=== PATIENT | male | born 1965 | race Caucasian/White ===

== ENCOUNTER 2017-11-16 08:45 | Inpatient (IN) | payer OTHER ==
--- NOTE | 2017-11-11 08:30 | GHP ---
[f rep st] PREOP HISTORY AND PHYSICAL He will be a morning admission for surgery at [facility] on ____ . PROBLEM #1: Right hip arthritis. HISTORY OF PRESENT ILLNESS: The patient is a 52-year-old man admitted for a right hip [place] hip resurfacing arthroplasty. He has been aware of some soreness in the right hip for the past 4 or 5 years. Since April of 2017, the right hip has been particularly painful. He has been limping. He has groin pain. He has occasional buttocks pain. It is painful to walk and hike. He discontinued running in May. He occasionally uses ibuprofen. He has mild trouble putting on his shoes and socks on the right foot. He has tried physical therapy, which did not help. He has not had any cortisone injections. PAST MEDICAL HISTORY: Overall, he is in excellent general health. He takes medicine for depression. No history of heart disease, stents, DVT, hepatitis, or bleeding problems. He states that he has "a little" sleep apnea. CURRENT MEDICATIONS: Paxil 5 mg per day. ALLERGIES: Drug allergies: Penicillin. He had an unknown reaction as a child. Metal allergy: None. Latex allergy: None. SOCIAL HISTORY: The patient is . 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 He does not smoke cigarettes and occasionally drinks alcohol. FAMILY HISTORY: Positive for heart disease, arthritis, and diabetes mellitus. PHYSICAL EXAMINATION: VITAL SIGNS: Height 5 feet, 11 inches. Weight 150 pounds. BMI 20.9. EYES: Conjunctivae and sclerae are clear. Pupils are round and reactive. MOUTH: Good oral hygiene. No loose teeth. CHEST: Clear. HEART: Regular rhythm. No murmurs. EXTREMITIES: Pertinent findings are limited to his right hip. He has full hip extension and 120 degrees of flexion. External rotation 40 degrees. Internal rotation 0 degrees. Abduction 40 degrees. He has well-developed thigh and calf musculature. IMAGING: His films show advanced degenerative arthritis of the right hip. He is [id number]. He does not have much osteophyte formation. IMPRESSION ON ADMISSION: 1. Right hip advanced degenerative arthritis. He is prepared for a right hip [place] hip resurfacing arthroplasty. 2. Treatment for depression. PLAN: He will undergo a right hip BHR. The surgery has been described to him, including the risks, complications, expectations, and recovery time. I have discussed with him the risk of femoral neck fracture, dislocation, infection, and sciatic nerve injury. I have also talked to him in detail about the potential risk of elevated metal ions in the blood and in the soft tissues around the hip joint. All of his questions have been answered, and he consents to surgery. /[id number]/MODL MTDD
[~2017-11-16 08:45] MED LIST: POVIDONE-IODINE 20 ML in SODIUM CL IRRIG SOLUTION 500 ML IRR ONE; ROPIVACAINE 0.2% 80 MG, EPINEPHrine 0.2 MG, KETOROLAC TROMETHAMINE 30 MG in SYRINGE 0 ML IU ONE; TRANEXAMIC ACID 1,400 MG in NS 100 ML IV ONE; VANCOMYCIN HCL/NORMAL SALINE 250 ML IV ONE; VANCOMYCIN PHARMACY TO DOSE MISC ONE
[2017-11-16] MEDS ORDERED: DEXAMETHASONE 4 MG/ML VIAL IVP ONE (09:52)
[2017-11-16] MEDS ORDERED: ACETAMINOPHEN 325 MG TAB PO ONE (09:52)
[2017-11-16] MEDS ORDERED: FAMOTIDINE 20 MG TAB PO ONE (09:52)
[2017-11-16] MEDS ORDERED: GABAPENTIN 300 MG CAP PO ONE (09:52)
[2017-11-16] MEDS ORDERED: LR 1,000 ML IV ONE (10:16)
[2017-11-16] MEDS ORDERED: ceFAZolin 1 GM/5 ML SYR ONE (10:18)
[2017-11-16] MEDS: LIDOCAINE 1% 2 ML INJ ID PRN ×2 (10:33→11:15)
[2017-11-16] MEDS ORDERED: MIDAZOLAM 2 MG/2 ML VIAL IVP ONE (10:57)
--- NOTE | 2017-11-16 10:57 | PDANEPAE ---
ANE History of Present Illness R [place] hip arthroplasty ANE Past Medical History - Cardiovascular History Hx Hypertension: No Hx Arrhythmias: No Hx Chest Pain: No Hx Coronary Artery / Peripheral Vascular Disease: No Hx CHF / Valvular Disease: No Hx Palpitations: No - Pulmonary History Hx COPD: No Hx Asthma/Reactive Airway Disease: No Hx Recent Upper Respiratory Infection: No Hx Oxygen in Use at Home: No Hx Sleep Apnea: No Sleep Apnea Screening Result - Last Documented: Positive Pulmonary History Comment: R/O sleep apnea - Neurologic History Hx Cerebrovascular Accident: No Hx Seizures: No Hx Dementia: No - Endocrine History Hx Diabetes: No - Renal History Hx Renal Disorders: No - Liver History Hx Hepatic Disorders: No - Neurological & Psychiatric Hx Hx Neurological and Psychiatric Disorders: Yes Neurological / Psychiatric History Comment: anxiety - Cancer History Hx Cancer: No - Congenital Disorder History Hx Congenital Disorders: No - GI History Hx Gastrointestinal Disorders: No - Chronic Pain History Chronic Pain: No - Surgical History Prior Surgeries: B rotator cuff repair ANE Review of Systems Review of systems is: negative Review of Systems: - Exercise capacity Exercise capacity: >=4 METS METS (RN): 6 METS ANE Patient History - Allergies Allergies/Adverse Reactions: Penicillins Allergy (Verified 08/22/14 08:42) - Home Medications Home medications: home medication list seen and reviewed Home Medications: PARoxetine HCL [Paxil 10mg (*)] 5 mg PO DAILY 08/22/14 [Last Taken 11/15/17 22: 00] - NPO status NPO Status: no food or drink >8 hours NPO Since - Liquids (Date): 11/15/17 NPO Since - Liquids (Time): 22:00 NPO Since - Solids (Date): 11/15/17 NPO Since - Solids (Time): 22:00 - Anes Hx Anes Hx: no prior problems - Smoking Hx Smoking Status: Never smoked - Family Anes Hx Family Anes Hx: none Family Hx Anesthesia Complications: none ANE Labs/Vital Signs - Vital Signs Blood Pressure: 113/82 Heart Rate: 50 Respiratory Rate: 16 O2 Sat (%): 97 Height: 177.8 cm Weight: 70.307 kg ANE Physical Exam - Airway Neck exam: FROM Mallampati Score: Class 1 - Pulmonary Pulmonary: no respiratory distress - Cardiovascular Cardiovascular: regular rate and rhythym - ASA Status ASA Status: I (this eval was completed before pt care, but documentation completed later) ANE Anesthesia Plan Anesthesia Plan: MAC, spinal
--- NOTE | 2017-11-16 11:40 | PDHPUP ---
History & Physical Update H&P update statement: This history and physical update is based on an assessment of the patient which was completed after admission or registration (within 24 hours), but prior to the surgery/procedure. H&P update: H&P reviewed & patient examined, no change in patient's condition since H&P completed
[2017-11-16] MEDS ORDERED: PROPOFOL/EMULSION 500 MG/50 ML BOTTLE IV ONE (12:23)
[2017-11-16] MEDS ORDERED: LIDOCAINE 2% 100 MG/5 ML SYR ONE (12:23)
[2017-11-16] MEDS ORDERED: epHEDrine SULFATE 10 MG/ML SYR ONE (13:44)
--- NOTE | 2017-11-16 14:02 | POSTOPPROG ---
Post Op Note Date of Operation: 11/16/17 Surgeon: Nir Ch Ecommerce Marketing Manager: Marcel Hopson/Clive Jon Anesthesiologist: Dr. Sergey Aguayo Anesthesia: IV Sedation, Spinal Post-op Diagnosis: Right hip arthritis Procedure: Right [place] hip resurfacing arthroplasty Inf/Abcess present in the surg proc area at time of surgery?: No EBL: 100-500
[2017-11-16] MEDS ORDERED: HYDROmorphONE/DILAUDID 1 MG/ML INJ IVP PRN (14:11)
[2017-11-16] MEDS ORDERED: HYDROCODONE/APAP 5/325 TAB PO PRN (14:11)
[2017-11-16] MEDS ORDERED: PROMETHAZINE HCL 25 MG/ML INJ IVP PRN ×2 (14:11→14:20)
[2017-11-16] MEDS ORDERED: DEXAMETHASONE 4 MG/ML VIAL IVP PRN (14:11)
[2017-11-16] MEDS ORDERED: OXYCODONE/APAP 5/325 TAB PO PRN (14:11)
[2017-11-16] MEDS ORDERED: ACETAMINOPHEN 500 MG TAB PO PRN (14:11)
[2017-11-16] MEDS ORDERED: NALOXONE HCL 0.4 MG/ML INJ IVP PRN (14:11)
[2017-11-16] MEDS ORDERED: fentaNYL 100 MCG/2 ML INJ IVP PRN (14:11)
[2017-11-16] MEDS ORDERED: ONDANSETRON 4 MG/2 ML VIAL IVP PRN ×2 (14:11→14:20)
--- NOTE | 2017-11-16 14:14 | POSTANESTH ---
Post Anesthetic Evaluation Cardiovascular Status: Normal, Stable, Similar to Pre-Op Cond Respiratory Status: Normal, Stable, Similar to Pre-op Cond. Level of Consciousness/Mental Status: Can Participate in Eval, Mildly Sleepy, Arousable Pain Control: Adequate, Prn Tx Ordered Nausea/Vomiting Control: Adequate, Prn Tx Ordered Complications Possibly Related to Anesthesia: None Noted
[2017-11-16] MEDS ORDERED: oxyCODONE IR 5 MG TAB PO PRN (14:20)
[2017-11-16] MEDS ORDERED: MAGNESIUM HYDROXIDE 30 ML UDCUP PO PRN (14:20)
[2017-11-16] MEDS ORDERED: PROMETHAZINE HCL 25 MG SUPPR PR PRN (14:20)
[2017-11-16] MEDS ORDERED: POLYETHYLENE GLYCOL 3350 17 GM PKT PO PRN (14:20)
[2017-11-16] MEDS ORDERED: DIPHENOXYLATE/ATROPINE LOMOTIL 1 TAB PO PRN (14:20)
[2017-11-16] MEDS ORDERED: BISACODYL 10 MG SUPP PR PRN (14:20)
[2017-11-16] MEDS ORDERED: LACTULOSE 20 GM/30 ML UDCUP PO PRN (14:20)
[2017-11-16] MEDS ORDERED: NS 500 ML IV PRN (14:20)
[2017-11-16] MEDS ORDERED: diphenhydrAMINE 25 MG CAP PO PRN (14:20)
[2017-11-16] MEDS ORDERED: CYCLOBENZAPRINE 10 MG TAB PO PRN (14:20)
[2017-11-16] MEDS ORDERED: KETOROLAC 30 MG/1 ML SDV IVP PRN (14:20)
[2017-11-16] MEDS ORDERED: ONDANSETRON DISINTEGRATING 4 MG TAB PO PRN (14:20)
[2017-11-16] MEDS ORDERED: TEMAZEPAM 15 MG CAP PO PRN (14:20)
[2017-11-16] MEDS ORDERED: LR 1,000 ML IV SCH (14:30)
[2017-11-16] MEDS: ACETAMINOPHEN 325 MG TAB PO SCH (17:54)
[2017-11-16] MEDS: SENNOSIDES/DOCUSATE SODIUM TAB PO SCH (20:41)
[2017-11-16] MEDS: FAMOTIDINE 20 MG TAB PO SCH (20:41)
[2017-11-16] MEDS: TRANEXAMIC ACID 650 MG TAB PO SCH (20:42)
[2017-11-16] MEDS: ASPIRIN EC 325 MG TAB PO SCH (20:42)
--- NOTE | 2017-11-16 22:18 | GOP ---
[f rep st] OPERATIVE REPORT DATE OF OPERATION: 11/16/2017 SURGEON: Nir Ch MD MASTER MACHINIST: Marcel Hopson and Clive Jon. ANESTHESIA: Combination of Marcaine, spinal, and IV sedation. PREOPERATIVE DIAGNOSIS: Right hip severe degenerative arthritis. POSTOPERATIVE DIAGNOSIS: Right hip severe degenerative arthritis. PROCEDURE PERFORMED: 11/16/2017, a right hip [place] hip resurfacing arthroplasty. FINDINGS: ESTIMATED BLOOD LOSS: About 300 mL. DESCRIPTION OF PROCEDURE: The patient was given 1 g of IV Ancef preoperatively within 60 minutes of surgery. He also received IV tranexamic acid at a dose of 20 mg/kg. He was placed on the operating room table and given spinal anesthesia with Marcaine by Dr. Aguayo. He was then placed supine and given IV sedation. A Ackerman catheter was not used. He wore a compressive stocking and SCD on the non operative leg. He was rolled to the left lateral decubitus position. An axillary roll was used, and all pressure points were padded. The position was secured with the pegboard table attachment. I wa s careful to lock his pelvis in a vertical position. His perineum was isolated with plastic adhesive drapes. The right hip and right lower extremity were prepped with ChloraPrep. They were draped tara e using sterile sheets, stockinette, and Ioban plastic drape. The World Health Organization time-out was performed to verify the correct patient identity and the c orrect surgical side and site. The Berkley time-out was also performed. I made a 6-7 inch straight oblique posterolateral hip skin incision. The subcutaneous tissues were s harply divided, and hemostasis was obtained using electrocautery. The fascia jeanmarie was identified and split along the axis of its fibers. I curved posteriorly and proximally split the fascia of gluteus dante and bluntly split the muscle fibers in line with their orientation. His sciatic nerve was i dentified and protected throughout the procedure. The Charnley self-retaining retractor was inserted . The external rotators and the posterior hip capsule were divided as separate layers at the base of the femoral neck, tagged, and reflected posteriorly. The gluteus dante tendon was divided and tag ged in order to improve exposure and release tension on the sciatic nerve. The hip was dislocated po steriorly. I used a sizing gauge to check the diameter of the neck and concluded that 48 mm was the proper head size. I performed a complete circumferential capsulotomy. I was able to retract the fem oral head anteriorly and superiorly, and hold it out of place with appropriate retractors. The remna nt of his damaged labrum was excised. The acetabulum was reamed sequentially up to 54 mm. I selecte d the Sharon monoblock porous-coated acetabular component with an outside diameter of 54 mm. Neema s was firmly impacted and was very tight. I was careful to determine proper inclination and antevers ion. I used the transverse acetabular ligament and other acetabular bony landmarks to help me determ ine proper cup orientation. A moderate-sized posterior-inferior osteophyte was removed with an osteo tome and rongeur. I was careful to leave a good lip of bone and capsule extending beyond the anterio r-inferior lip of the metal cup. I then returned to preparation of the femoral head. Using appropriate jigs and guides, I inserted a guide pin into the femoral head and neck. I was careful to position it in such a way that there woul d be no notching of the neck. The large sterile metal goniometer was used to check the neck shaft an gle. I reamed over the guide pin and inserted the reaming guide. I then used the cylindrical reamer down to the head and neck junction. This was followed by the flat reamer and the chamfer reamer. T he head was sized for 48 mm. There was no impingement or damage to the neck. He had some moderate s ized dense anterior neck osteophytes, which I removed with a rongeur. I drilled a small hole in the lesser trochanter and inserted a suction cannula to create negative pressure in the medullary canal. Small holes were drilled on the flattened chamfer surfaces of the prepared head for cement anchors. The head was thoroughly cleaned with the pulsating lavage and carefully dried. I used a CarboJet de vice to blow dry the cancellous surfaces. A single batch of Simplex cement with tobramycin was mixed . At about 50 seconds, I poured the liquid cement into the head component, inserted it on the prepar ed femoral head and impacted it into place. Excess cement was removed before it hardened. The acetabulum was irrigated, cleaned, and the hip was reduced 1 final time. Stability and range of motion were checked. I placed my finger along the anterior aspect of the acetabular component and fl exed the hip to 110 degrees. There was no anterior impingement. The suction cannula and the lesser trochanter were removed. The wound was thoroughly irrigated with a dilute Betadine solution. 40 mL of the joint anesthetic cocktail were injected into the capsule, and the subcutaneous tissues around the skin edges. His sciatic nerve was reinspected and looked unharmed. The external rotators and the posterior hip c apsule were repaired in separate layers with two #2 FiberWire sutures through drill holes in the grea ter trochanter. This provided a strong posterior capsular and external rotator repair. The gluteus dante tendon was repaired with two #2 [id number] FiberWire sutures. The fascia jeanmarie was close d first with 2 interrupted [id number] #2 FiberWire sutures followed by a running #2 barbed Ethic on Stratafix PDO suture. Subcutaneous tissues were closed with a running 0 barbed Ethicon Stratafix Monoderm suture. The skin was closed with a running 3-0 barbed Ethicon Stratafix Monoderm subcuticul ar suture. The skin edges were reapproximated and sealed with Dermabond glue. The wound was covered with a large sterile Mepilex waterproof dressing. IMPLANTS: I used the [place] hip resurfacing system. The acetabular component was [address] and press-fit. The femoral head was 48 mm and cemented. He was awakened from anesthesia and rolled to the supine position on his [facility]. He was sofi en to PACU in satisfactory condition. There were no recognized intraoperative complications. A long -leg JEFF stocking and SCD were applied to the operative leg. An abduction pillow was placed between his knees. COUNTS: The sponge and needle count were correct on 2 occasions. Marcel Hopson and Clive Jon acted as surgical assistants. Their assistance was a medical necess ity for safe completion of the procedure. /[id number]/MODL
[2017-11-16] MEDS ORDERED: VANCOMYCIN HCL/NORMAL SALINE 250 ML IV ONE (23:00)
[2017-11-16] MEDS: traMADol 50 MG TAB PO PRN (23:10)
[2017-11-17] MEDS: ACETAMINOPHEN 325 MG TAB PO SCH ×3 (00:29→11:36)
[2017-11-17] MEDS: TRANEXAMIC ACID 650 MG TAB PO SCH ×2 (04:02→11:37)
[2017-11-17 04:28] VITALS: RESP 16; TEMP 97.9; O2SAT 96
[2017-11-17] MEDS: traMADol 50 MG TAB PO PRN (04:28)
[2017-11-17 05:14] LABS: HEMATOCRIT 37.3 % (40.0-51.0)
--- NOTE | 2017-11-17 07:31 | SOAPPROG ---
SOAP Progress Note Assessment/Plan: Assessment: Afebrile. Moderate pain. She has been up and walking in the [place]. Her H&H is satisfactory. Postop films look fine. Plan: Continue physical therapy for [place] walking and stairs. Discharged later today. We will cover her with Lovenox until her INR is therapeutic. 11/17/17 07:29 Objective: Vital Signs Temp Pulse Resp BP Pulse Ox 36.6 C 62 16 107/69 96 11/17/17 04:00 11/17/17 04:00 11/17/17 04:00 11/17/17 04:00 11/17/17 04:00 Laboratory Results 11/17/17 04:45 11/16/17 11/17/17 11/18/17 05:59 05:59 05:59 Intake Total 3030 Output Total 300 Balance 2730 ICD10 Worksheet Patient Problems: Problems Problem Status Onset Osteoarthritis of right hip Acute Abdominal pain Acute
--- NOTE | 2017-11-17 07:32 | SOAPPROG ---
SOAP Progress Note Assessment/Plan: Assessment: Afebrile. Moderate pain. She has been up and walking in the [place]. Her H&H is satisfactory. Postop films look fine. Plan: Continue physical therapy for [place] walking and stairs. Discharged later today. We will cover her with Lovenox until her INR is therapeutic. 11/17/17 07:29 11/17/17 07:31 The above progress note was on the wrong patient. Afebrile. Minimal pain. He has been up and walking in the [place]. His dressing is dry. H&H is satisfactory. Sciatic nerve is intact. Postop films look excellent. Plan: Physical therapy today. Discharged later today. Objective: Vital Signs Temp Pulse Resp BP Pulse Ox 36.6 C 62 16 107/69 96 11/17/17 04:00 11/17/17 04:00 11/17/17 04:00 11/17/17 04:00 11/17/17 04:00 Laboratory Results 11/17/17 04:45 11/16/17 11/17/17 11/18/17 05:59 05:59 05:59 Intake Total 3030 Output Total 300 Balance 2730 ICD10 Worksheet Patient Problems: Problems Problem Status Onset Osteoarthritis of right hip Acute Abdominal pain Acute
--- NOTE | 2017-11-17 08:04 | GDS ---
[f rep st] DISCHARGE SUMMARY ADMISSION DIAGNOSIS: Right hip severe degenerative arthritis. DISCHARGE DIAGNOSIS: Right hip severe degenerative arthritis. OPERATION PERFORMED: 11/16/2017, right hip [place] hip resurfacing arthroplasty. POSTOPERATIVE COMPLICATIONS: None. CONDITION ON DISCHARGE: Improved. DESCRIPTION OF HOSPITAL COURSE: The patient was admitted to the hospital on the morning of surgery. His admission CBC was normal. The same day, under a combination of Marcaine, spinal, and IV sedatio n, he underwent a right hip [place] hip resurfacing arthroplasty. Postoperatively he was treated with multimodal DVT prophylaxis, including aspirin. He was seen by Physical Therapy and made rapid p rogress with ambulation. On the first postoperative day, his hemoglobin and hematocrit were 13.0 and 37.3. DISPOSITION: Patient is discharged to his home. He may progress to full weightbearing on the right as tolerated. Use an abduction pillow for 3 weeks. Continue aspirin 325 mg p.o. daily for 21 days. He has prescriptions for oxycodone and tramadol for pain control. I will see him back in the office on 12/05/2017. If there any problems, he is to call me at the office. /[id number]/MODL
[2017-11-17 08:23] VITALS: BP 117/76; PULSE 56
[2017-11-17] MEDS ORDERED: PARoxetine HCL 10 MG TAB PO SCH (09:00)
[2017-11-17] MEDS ORDERED: FERROUS SULFATE 140 MG TAB.ER PO SCH (09:00)
[2017-11-17] MEDS: SENNOSIDES/DOCUSATE SODIUM TAB PO SCH (09:09)
[2017-11-17] MEDS: ASPIRIN EC 325 MG TAB PO SCH (09:09)
[2017-11-17] MEDS: FAMOTIDINE 20 MG TAB PO SCH (09:09)
--- NOTE | 2017-11-17 12:02 | ASMTCMCOM ---
CM Note CM Note Notes: Pt medically stable for d/c, no CM d/c needs identified. Date Signed: 11/17/2017 12:01 PM Electronically Signed By:MEKA Knight
--- NOTE | 2017-11-17 12:05 | ASDISCHSUM ---
Discharge Information Plan Status:Home with No Needs Medically Cleared to Leave: Discharge Date:11/17/2017 11:42 AM CM D/C Disposition:Home, Routine, Self-Care ADT D/C Disposition:Home, Routine, Self-Care Projected Discharge Date:11/17/2017 11:42 AM Transportation at D/C: Discharge Delay Reason: Follow-Up Date:11/17/2017 11:42 AM Discharge Slot: Final Diagnosis: Placement Information Patient Contact Information Contact Name:DONARAFAArleen Relationship: Address:[address] [facility] City:[place] Alternate Phone: [facility]/Zip Code:[place] [address] Email: Financial Information Financial Class:[employer] Primary Plan Desc:[employer] OPEN ACC LOCAL Primary Plan Number:[id number] Secondary Plan Desc: Secondary Plan Number: Assessment Information [facility] CM Progress Note CM Note CM Note Notes: Pt medically stable for d/c, no CM d/c needs identified. Date Signed: 11/17/2017 12:01 PM Electronically Signed By:MEKA Knight Intervention Information
== END 2017-11-17 11:42 | disposition home or self-care (01) | DRG 470 ==
LOC: F3N 08:45
PROVIDERS: ADMIT Orthopaedic Surgery; ATTEND Orthopaedic Surgery
PROC: 0SU90BZ Supplement Right Hip Joint with Resurfacing Device, Open Approach (ICD-10-PCS; principal; 2017-11-16 12:15)
DX: M16.11 Unilateral primary osteoarthritis, right hip (principal); F32.9 Major depressive disorder, single episode, unspecified
CPT/HCPCS: 97161-GP; 97165-GO; C1713; J0171; J1100; J1885; J2001; J2250; J2704; J2795; J3370